=== PATIENT | male | born 1975 | race Caucasian/White ===

== ENCOUNTER → 2020-05-15 | Outpatient (CLI) | payer SELFPAY ==
--- NOTE | 2020-05-15 13:37 | RAD ---
EXAM DESCRIPTION: Elbow,Right 3 Views CLINICAL HISTORY: PAIN IN ELBOW COMPARISON: None Available. TECHNIQUE: X-ray right elbow 3 view FINDINGS: Postop changes posteriorly with skin clips present. Large enthesophyte at the triceps insertion on the posterior ulna. No fracture or bone lesion. IMPRESSION: 1. Large enthesophyte at the triceps insertion Electronically signed by: Shay Gramajo MD 05/15/2020 1:35 PM [facility]
== END ==
LOC: RAD 07:37
PROVIDERS: ATTEND Orthopaedic Surgery
DX: M25.521 Pain in right elbow (principal); M77.9 Enthesopathy, unspecified

== ENCOUNTER → 2020-05-27 | Outpatient (CLI) | payer SELFPAY ==
--- NOTE | 2020-05-27 11:19 | RAD ---
EXAM DESCRIPTION: Elbow,Right 2 Views CLINICAL HISTORY: TENDON RUPTURE COMPARISON: Previous x-ray study May 15, 2020 TECHNIQUE: AP, Lateral, and Oblique FINDINGS: Two-view x-ray right elbow shows large calcification in the region of the distal triceps tendon with prominent spurring at the olecranon. Spurring is seen at the coronoid process. No displacement of distal humeral fat pads. Radial head and capitellum are normally aligned on both views. Prominent spurring along the lateral epicondyle of the distal humerus.. Cast material has been removed since previous study May 15, 2020. Edematous changes are seen in the soft tissues dorsally proximal to and distal to the elbow. No other change in appearance since previous exam. IMPRESSION: Prominent olecranon spur with calcification in the region of the distal triceps tendon. Electronically signed by: Juma Charlton MD 05/27/2020 11:18 AM [facility]
== END ==
LOC: RAD 07:38
PROVIDERS: ATTEND Orthopaedic Surgery
DX: M66.821 Spontaneous rupture of other tendons, right upper arm (principal); M77.9 Enthesopathy, unspecified